=== PATIENT | male | born 1990 | race Caucasian/White ===

== ENCOUNTER 2021-02-05 00:04 | Emergency (ER) | payer MEDICAID ==
[~2021-02-05] VITALS: Ht 182.9 cm; Wt 95.3 kg
--- NOTE | 2021-02-05 00:45 | NUR ---
[place] [facility] AT PT SIDE
[2021-02-05 00:57] VITALS: BP 126/66
--- NOTE | 2021-02-05 01:21 | NUR ---
Dr. Leggett examining patient.
--- NOTE | 2021-02-05 01:30 | NUR ---
d/c back to [facility] Officer Diaz #[phone] custody with [facility]. pt is ok to book.
== END 2021-02-05 01:31 ==
LOC: MED 00:04
DX: S05.11XA Contusion of eyeball and orbital tissues, right eye, initial encounter (principal); Z02.89 Encounter for other administrative examinations; V89.2XXA Person injured in unspecified motor-vehicle accident, traffic, initial encounter; Y93.89 Activity, other specified; Y92.89 Other specified places as the place of occurrence of the external cause; Y99.8 Other external cause status
CPT/HCPCS: 99283